=== PATIENT | male | born 1950 | race Caucasian/White ===

== ENCOUNTER 2024-10-30 12:57 | Outpatient (AMB) | payer MEDICARE, SELFPAY ==
--- NOTE | 2024-10-30 13:07 | MHC.OFFVIS ---
Intake Visit Reasons: Gross Hematuria/Kidney Lesion/Hx UTI(PVU Notes) Intake Note: Patient is present for GROSS HEMATUIRA/KIDNEY LESION/HX UTI Urology Medication:NONE Antibiotic Allergy:DOXYCYCLINE Blood Thinner:NONE Non Destructive Evaluation Technician Required: No Allergies doxycycline Allergy (Severe, Verified 10/30/24 13:09) Visual and Congnitive Impairment garlic Allergy (Severe, Verified 10/30/24 13:09) flu symptoms onions Allergy (Mild, Uncoded 10/30/24 13:09) Unknown HPI Comments Details: Urinary tract infection 1.3 cm left dense renal cyst on ultrasound [facility] Medical History (Updated 10/30/24 @ 13:38 by Joe Altamirano MD) Heart disease UTI (urinary tract infection) Dyspnea on exertion Renal calculus, left Kidney lesion, [place], left Gross hematuria Cardiomyopathy Surgical History (Updated 10/27/24 @ 16:07 by CHRISTINE Queen) History of hernia repair Social History (Updated 10/27/24 @ 16:00 by CHRISTINE Queen) Patient Tobacco Use Status: Never used Tobacco Assessment & Plan Assessment & Plan Orders: Orders AMB Urinalysis Automated Today Z13.9 - Encounter for screening, unspecified Coding
--- OUTSIDE RECORDS SUMMARY | 2024-10-30 13:23 | XMS_ITS | Encounter Summary ---
Author Organization [facility] Address [address] [place] [address] Care Team Providers Care Public Health Specialist Name Role Phone Physician, Pcp Unknown Primary Care Provider Catherine vailable Encounter Details Date Type Department Care Team (Late st Contact Info) Description 10/07/[address] [facility] - Main Lab [address] [facility] [place] [address] Evaristo Santana MD [address] [facility] [address] [place] [address] Gross hematuria Social History Tobacco Use Types Packs/Day Years Used Date Smoking Tobacco: Never Assessed Sex and Gender Information Value Date Recorded Sex Assigned at Not on file Legal Sex Male 6:25 AM EST Gender Identity Not on file Sexual Orientation Not on file documented as of this encounter Plan of Treatment Not on file documented as of this encounter Procedures Procedure Name Priority Date/Time Associated Diagnosis Comments AP OUTSIDE CONSULT Routine 09/30/2024 12 :00 AM EST Gross hematuria documented in this encounter Results * Anatomic pathology outside consult (09/30/2024 12:00 AM EST) Final Diagnosis A. Urine, Voided, ([id number]): Negative for high grade urothelial carcinoma. Results of UroVysion fluorescence in situ hybridization (FISH) testing: CEP3: Normal CEP7: Normal CEP17: Normal LSI 9p21: Normal Interpretation: Normal profile Controls stained appropriately. Note: The results are intended as a screening device and should be interpreted in association with other clinical and pathological findings. 10/21/2024 1:06 PM EST [facility] Clinical Information Gross hematuria R31.0 Urine Cytology/FISH (now) 10/21/2024 1:06 PM [facility] Gross Description A. Urine, Voided, ([id number]): Received one ThinPrep slide for cytology screen and one ThinPrep slide for UroVysion FISH 10/21/2024 1:06 PM [facility] Disclaimer Unless otherwise specified, all tissue is 10% NB formalin fixed and paraffin embedded. Technical pathology services provided by [facility] [address] [facility] [address] [place] [address] (CLIA #[id number]/Destini Lutz MD, Box Blank Machine Feeder) 10/21/2024 1:06 PM [facility] Tissue Urine specimen from urethra / Unknown 09/30/2024 10/07/2024 6:32 AM EST us Evaristo Santana MD LAB PATHOLOGY ORDERABLES Fi nal Result [facility] [address] [place] [address], documented in this encounter Visit Diagnoses Diagnosis Gross hematuria documented in this encounter Care Teams Public Health Specialist Relationship Specialty Start Date End Date Physician, Pcp Unknown PCP - General 10/22/24 10/22/24 documented as of this encounter
--- OUTSIDE RECORDS SUMMARY | 2024-10-30 13:23 | XMS_ITS | Patient Health Record ---
[facility] Organization [facility] [place] Address [address] [place] [address] Care Team Providers Care Keyboard Operator Name Role Phone Vamshi ASTORGA, González Primary Care Provider Billy Montemayor Unavailable [phone] Allergies Allergen (clinical drug ingredient) Drug/Non Drug Allergy documented on EMR Reaction Allergy Type Onset Date Status ciprofloxacin Cipro hives Drug Allergy Act davidson minocycline Minocycline HCl hives Drug Allergy Active Reason For Referral No Information Social History Tobacco Use: Social History Observation Description Date Details (start date - stop date) Never Smoker NA - NA Tobacco Use/Smoking Question Answer Notes Are you a: nonsmoker Additional Findings: Tobacco Non-User Current no n-smoker Alcohol Screen Question Answer Notes Did you have a drink containing alcohol in the p ast year? No Points 0 Interpretation Negative Tobacco use other than smoking: Question Answer Notes Are you an other tobacco user? No Problems Problem Type SNOMED Code ICD Code Onset Dates Problem Status W/U Status Risk Notes Problem Acquired hammer toe of right foot (9588245721142 105) Other hammer toe(s) (acquired), right foot (M20.41) Active confirmed Problem Acquired hammer toe of left foot (2785035347205 103) Other hammer toe(s) (acquired), left foot (M20.42) Active confirmed Plan Of Treatment Pending Test Test Name Order Date X ray : Foot, left 3V 04/30/2018 [id number] Destruction, 1-14 04/30/2018 Insurance Providers Payer Name Payer Address Payer Phone Subscriber Number Group Number Insured Name Patient Relationship to Insured Coverage Start Date Coverage End Date Medicare National [employer] [address] [place] [address] Jacques Daugherty Self - patient is the insured [facility] [address] [place] [address] [phone] [id number] Jacques Daugherty Self - patient is the insured Medical (General) History Medical History History ICD Code Joint implants/screws Surgical History Surgery Date(Month/Year) hip replacement 1999
--- OUTSIDE RECORDS SUMMARY | 2024-10-30 13:23 | XMS_ITS | Clinical Summary ---
Author Organization [facility] Address [address] [address] Care Team Providers Care Mouse Breeder Name Role Phone Lucero Salas MD Primary Care Provider [phone] Social History Tobacco Use Types Packs/Day Years Used Date Smoking Tobacco: Never Assessed Sex and Gender Information Value Date Recorded Sex Assigned at Not on file Legal Sex Male 11:30 AM EDT Gender Identity Not on file Sexual Orientation Not on file Plan of Treatment Health Maintenance Due Date Last Done Comments Pneumococcal Vaccine: 65+ Ye ars (1 of 1 - PCV) 2013 Influenza Vaccine (#1) 2024 Hepatitis B Vaccine Aged Out No longe r eligible based on patient's age to complete this topic Insurance MEDICARE [facility] Care Teams Mouse Breeder Relationship Specialty Start Date End Date Lucero Salas MD [address] [place] [phone] PCP - General Cardiology 12/05/21
--- OUTSIDE RECORDS SUMMARY | 2024-10-30 13:23 | XMS_ITS | Encounter Summary ---
Author Organization [facility], Address [address] [place] [address] Phone Care Team Providers Care Net Developer Consultant Name Role Phone Lucero Salas MD Primary Care Provider [phone] Encounter Details Date Type Department Care Team (Late st Contact Info) Description 12/05/2021 Documentation Only [facility], [address] [place] [address] González Bonds MD [address] [place] [phone] Social History Tobacco Use Types Packs/Day Years Used Date Smoking Tobacco: Never Assessed Sex and Gender Information Value Date Recorded Sex Assigned at Not on file Legal Sex Male 11:30 AM EDT Gender Identity Not on file Sexual Orientation Not on file documented as of this encounter Plan of Treatment Not on file documented as of this encounter Visit Diagnoses Not on filedocumented in this encounter Care Teams Net Developer Consultant Relationship Specialty Start Date End Date Lucero Salas MD [address] [place] [phone] PCP - General Cardiology 12/05/21 documented as of this encounter
--- OUTSIDE RECORDS SUMMARY | 2024-10-30 13:23 | XMS_ITS | Clinical Summary ---
Author Organization [address] Address [address] [place] [address] Phone Care Team Providers Care Summer Law Clerk Name Role Phone Unavailable Primary Care Provider Unavailabl e Encounters Date Type Department Care Team Description 10/07/[address] [facility] - Main Lab [address] [facility] [place] [address] Evaristo Santana MD Gross hematuria from Last 3 Months Social History Tobacco Use Types Packs/Day Years Used Date Smoking Tobacco: Never Assessed Sex and Gender Information Value Date Recorded Sex Assigned at Not on file Legal Sex Male 6:25 AM EST Gender Identity Not on file Sexual Orientation Not on file Plan of Treatment Health Maintenance Due Date Last Done Comments DTaP,Tdap,and Td Vaccines (1 - Tdap) 1967 Zoster Vaccines (1 of 2) 1998 Pneumococcal Vaccine: 50+ Ye ars (1 of 1 - PCV) 2013 RSV Immunization Patients 60 + Years Old (1 - 1-dose 75+ series) 2023 COVID-19 Vaccine (1 - 2023-2 5 season) 2024 Influenza Vaccine (#1) 2024 Cholesterol Screening (Lipid Panel) 10/07/2024 Depression Screening 10/07/2024 Falls Risk Assessment 10/07/2024 Hepatitis C Screening 10/07/2024 Medicare Annual Wellness Visit 10/07/2024 Social Influencers of Health Screening 10/07/2024 HIB Vaccines Aged Out No longer eligi ble based on patient's age to complete this topic HPV Vaccines Aged Out No longer eligi ble based on patient's age to complete this topic Hepatitis A Vaccines Aged Out No long er eligible based on patient's age to complete this topic Hepatitis B Vaccines Aged Out No long er eligible based on patient's age to complete this topic IPV Vaccines Aged Out No longer eligi ble based on patient's age to complete this topic MMR Vaccines Aged Out No longer eligi ble based on patient's age to complete this topic Meningococcal ACWY Vaccine Aged Out N o longer eligible based on patient's age to complete this topic RSV Immunization Patients Un becca 20 months Aged Out No longer eligible b ased on patient's age to complete this topic Varicella Vaccines Aged Out No longer eligible based on patient's age to complete this topic Procedures Procedure Name Priority Date/Time Associated Diagnosis Comments AP OUTSIDE CONSULT Routine 09/30/2024 12 :00 AM EST Gross hematuria from Last 3 Months Results * Anatomic pathology outside consult (09/30/2024 12:00 AM EST) Final Diagnosis A. Urine, Voided, ([id number]): Negative for high grade urothelial carcinoma. Results of UroVysion fluorescence in situ hybridization (FISH) testing: CEP3: Normal CEP7: Normal CEP17: Normal LSI 9p21: Normal Interpretation: Normal profile Controls stained appropriately. Note: The results are intended as a screening device and should be interpreted in association with other clinical and pathological findings. 10/21/2024 1:06 PM [facility] Clinical Information Gross hematuria R31.0 Urine Cytology/FISH (now) 10/21/2024 1:06 PM [facility] Gross Description A. Urine, Voided, ([id number]): Received one ThinPrep slide for cytology screen and one ThinPrep slide for UroVysion FISH 10/21/2024 1:06 PM [facility] Disclaimer Unless otherwise specified, all tissue is 10% NB formalin fixed and paraffin embedded. Technical pathology services provided by [facility] at [address] [place] [address] [address], [place] [address] (CLIA #[id number]/Destini Lutz MD, Sea Foam Kiss Maker) 10/21/2024 1:06 PM [facility] Tissue Urine specimen from urethra / Unknown 09/30/2024 10/07/2024 6:32 AM EST us Evaristo Santana MD LAB PATHOLOGY ORDERABLES Fi nal Result [facility] [address] [place] [address], [place] [phone] from Last 3 Months Insurance MEDICARE [facility]
--- OUTSIDE RECORDS SUMMARY | 2024-10-30 13:23 | XMS_ITS | Encounter Summary ---
Author Organization [facility], Address [address] [place] [address] Phone Care Team Providers Care Motor Vehicle Clerk Name Role Phone Lucero Salas MD Primary Care Provider [phone] Encounter Details Date Type Department Care Team (Late st Contact Info) Description 12/05/2021 Documentation Only [facility], [address] [place] [address] González Bonds MD [address] [place] [phone] Social History Tobacco Use Types Packs/Day Years [...] on filedocumented in this encounter Care Teams Motor Vehicle Clerk Relationship Specialty Start Date End Date Lucero Salas MD [address] [place] [phone] PCP - General Cardiology 12/05/21 documented as of this encounter
--- OUTSIDE RECORDS SUMMARY | 2024-10-30 13:23 | XMS_ITS | Encounter Summary ---
Author Organization [facility], Address [address] [place] [address] Phone Care Team Providers Care Technical Maintenance Specialist Name Role Phone Lucero Salas MD Primary Care Provider [phone] Encounter Details Date Type Department Care Team (Late st Contact Info) Description 12/05/2021 Documentation Only [facility], [address] [place] [address] Lucero Salas MD [address] [place] [address] Social History Tobacco Use Types Packs/Day Years [...] on filedocumented in this encounter Care Teams Technical Maintenance Specialist Relationship Specialty Start Date End Date Lucero Salas MD [address] [place] [id number] PCP - General Cardiology 12/05/21 documented as of this encounter
--- OUTSIDE RECORDS SUMMARY | 2024-10-30 13:23 | XMS_ITS | Encounter Summary ---
Author Organization [facility], Address [address] [place] [address] Phone Care Team Providers Care Halfway House Counselor Name Role Phone Lucero Salas MD Primary Care Provider [phone] Encounter Details Date Type Department Care Team (Late st Contact Info) Description 12/05/2021 Documentation Only [facility], [address] [place] [address] González Bonds MD [address] [place] [phone] Social History Tobacco Use Types Packs/Day Years [...] on filedocumented in this encounter Care Teams Halfway House Counselor Relationship Specialty Start Date End Date Lucero Salas MD [address] [place] [phone] PCP - General Cardiology 12/05/21 documented as of this encounter
== END 2024-10-30 14:19 | disposition home or self-care (01) ==
PROVIDERS: PCP Family Medicine; Visit Provider Urology
DX: Z13.9 Encounter for screening, unspecified (principal)

== ENCOUNTER → 2024-10-30 12:57 | Outpatient (BNVA) | payer MEDICARE, SELFPAY | PROVIDERS: PCP Family Medicine; Visit Provider Urology | DX: N28.1 Cyst of kidney, acquired (principal); N20.0 Calculus of kidney; N39.0 Urinary tract infection, site not specified | CPT/HCPCS: 81003; 99202 ==